=== PATIENT | female | born 1965 | race Caucasian/White ===

== ENCOUNTER 2020-07-11 17:05 | Emergency (ER) | payer OTHER ==
[2020-07-11 18:10] LABS: HEMOGLOBIN 16.7 gm/dl (12.3-15.3); RED BLOOD COUNT 5.01 M/UL (4.00-5.10); WHITE BLOOD COUNT 10.7 K/UL (4.5-11.0)
[2020-07-11 18:44] LABS: BUN/CREATININE RATIO 14 (0-10)
[2020-07-11] MEDS ORDERED: ZOFRAN ODT 4 MG4 MG PO (21:11)
[2020-07-11] MEDS ORDERED: PROTONIX40 MG PO (21:11)
== END 2020-07-11 21:27 | disposition home or self-care (01) ==
LOC: ER1 17:05
PROVIDERS: Emergency Medicine
DX: R07.89 Other chest pain (principal); R10.13 Epigastric pain; E11.9 Type 2 diabetes mellitus without complications; Z88.5 Allergy status to narcotic agent; Z88.0 Allergy status to penicillin; Z88.6 Allergy status to analgesic agent; Z79.899 Other long term (current) drug therapy
CPT/HCPCS: 71045; 80053; 82550; 82553; 83690; 83874; 83880; 84484; 85025; 85379; 85652; 93005; 96374; 99285; J2405

== ENCOUNTER 2020-07-13 09:02 | Emergency (ER) | payer OTHER ==
[~2020-07-13 09:02] MED LIST: PROTONIX40 MG PO; ZOFRAN ODT 4 MG4 MG PO
[2020-07-13 12:07] LABS: HEMOGLOBIN 16.9 gm/dl (12.3-15.3); RED BLOOD COUNT 5.04 M/UL (4.00-5.10)
[2020-07-13 12:35] LABS: BUN/CREATININE RATIO 16 (0-10)
== END 2020-07-13 13:32 | disposition home or self-care (01) ==
LOC: ER1 09:02
PROVIDERS: Nurse Practitioner
DX: M54.12 Radiculopathy, cervical region (principal); E11.9 Type 2 diabetes mellitus without complications; Z88.0 Allergy status to penicillin; Z88.5 Allergy status to narcotic agent; Z88.8 Allergy status to other drugs, medicaments and biological substances; F17.210 Nicotine dependence, cigarettes, uncomplicated
CPT/HCPCS: 70450; 71045; 80053; 80307; 81001; 82550; 82553; 83874; 83880; 84484; 85025; 85379; 85610; 87086; 93005; 99284